=== PATIENT | female | born 1995 | race American Indian/Alaskan Native ===

== ENCOUNTER 2017-03-19 14:53 | Inpatient (IN) | payer MEDICAID ==
[2017-03-19] MEDS ORDERED: Ondansetron 4 MG/2 ML SDV IV PRN (16:29)
[2017-03-19] MEDS ORDERED: Carboprost Tromethamine 250 MCG/1 ML Amp IM PRN (16:29)
[2017-03-19] MEDS ORDERED: Misoprostol 400 MCG (4 X 100 MCG TAB) RECTAL PRN ×2 (16:29→20:17)
[2017-03-19] MEDS ORDERED: Sodium Chloride 0.9% 10 ML Syringe FLUSH PRN (16:29)
[2017-03-19] MEDS ORDERED: Lactated Ringers 500 ML IV ONE (16:29)
[2017-03-19] MEDS ORDERED: Methylergonovine 0.2 MG/1 ML Amp IM PRN (16:29)
[2017-03-19] MEDS ORDERED: Lidocaine 1% 30 ML SDV INJECT PRN (16:29)
[2017-03-19] MEDS ORDERED: Acetaminophen 325 MG Tab PO PRN (16:29)
[2017-03-19] MEDS: Lactated Ringers 1,000 ML IV SCH ×2 (16:50→20:44)
[2017-03-19] MEDS ORDERED: Simethicone 80 MG Tab.Chew PO PRN (20:17)
[2017-03-19] MEDS ORDERED: Oxytocin 10 Units/1 ML SDV IM PRN (20:17)
[2017-03-19] MEDS ORDERED: Benzocaine/Menthol 20%-0.5% Spray 56 GM Canister TOP PRN (20:17)
[2017-03-19] MEDS ORDERED: Oxytocin/Normal Saline 30 UNIT/500 ML BAG IV SCH (20:30)
[2017-03-19] MEDS ORDERED: Measles, Mumps & Rubella Vaccine 0.5 ML SDV SUBCUT ONE (21:00)
[2017-03-19] MEDS: Ibuprofen 800 MG Tab PO PRN (23:22)
[2017-03-19] MEDS: Docusate Sodium 100 MG Cap PO PRN (23:22)
--- NOTE | 2017-03-20 00:41 | HP ---
HISTORY OF PRESENT ILLNESS: The patient is a 21-year-old, G2, P1, at 39 weeks and 4 days. She presents today with contractions. No loss of fluid. No vaginal bleeding. Good movement. Thus far, this has been an uncomplicated . OB HISTORY: The patient has had 1 vaginal delivery, 7 pounds 5 ounces. 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 No STDs. PAST MEDICAL HISTORY: Negative. PAST SURGICAL HISTORY: Negative. ALLERGIES: The patient has no known drug allergies. LABORATORY DATA: The patient's blood type O positive. Antibody negative. She is rubella nonimmune. Syphilis negative. Hepatitis B negative. HIV negative. Group B strep negative. One hour glucose was 110. Hepatitis C negative. Gonorrhea and chlamydia negative. The patient did have an ultrasound on 11/30/2016, which did revise her edc. The ultrasound was otherwise normal. PHYSICAL EXAMINATION: General: The patient is afebrile. Vital Signs: Blood pressure 134/59. External monitoring is reactive, reassuring with contractions. The patient was admitted with a cervix of 4 cm and within an hour she progressed to 5, 80 and 0. CBC showed a white count of 10.7, hemoglobin 9.3, platelets 47. ASSESSMENT AND PLAN: IUP at term, in active labor. We will likely augment this labor with AROM and expect a vaginal delivery. [facility] /[id number] MTDD
[2017-03-20] MEDS: Ferrous Sulfate 325 MG Tab PO SCH ×3 (05:01→17:48)
[2017-03-20] MEDS ORDERED: Prenatal Multivitamin with Calcium/Folic Acid/Iron Tab PO SCH (09:00)
[2017-03-20] MEDS: Ibuprofen 800 MG Tab PO PRN (09:18)
[2017-03-20] MEDS: Docusate Sodium 100 MG Cap PO PRN (09:19)
--- NOTE | 2017-03-20 16:18 | PCM.DEL ---
<Elijah Estrella - Last Filed: 03/20/17 23:43> L & D Note - General Info Date of Service: 03/19/17 Mother's Due Date: 03/22/17 - Delivery Note Labor: Spontaneous Delivery Outcome: Livebirth Infant Delivery Method: Spontaneous Vaginal Delivery-Single Infant Delivery Mode: Spontaneous Presentation: Left Occiput Anterior (REJI) Nuchal Cord: None Anesthesia Type: None Anesthetic: Lidocaine (Xylocaine) 0.5% Plain Local Anesthetic Volume: 5cc Amniotic Fluid Description: Clear Episiotomy Type: None Laceration: 1st Degree Suture type: Vicryl Suture size: 3-0 Placenta: Intact, Spontaneous Cord: 3 Vessels Estimated Blood Loss: 200 [place]: Bulb Syringe Provider: Malorie Burrows Score 1 min: 10 Score 5 min: 10 Second Stage Interventions: Reports: Second Nurse Assessed Progress of Descent, Second Nurse Reviewed Contraction Pattern, Second Nurse Reviewed Heart Tones, Encouragement Given, Laboring Down Delivery Comments (Free Text/Narrative):: With the patient in the lithotomy position, she delivered a viable male in the OA position over intact perineum. After the infant's head delivered shoulders followed thereafter, and then baby was briefly dried, crying well, and delivered up to mother's abdomen. Minimal bulb suction was necessary. Delayed cord clamping was performed,and then the umbilical cord was cut, and three-vessel verified, cord blood sample obtained and placenta delivered by gentle cord traction and uterine massage, inspected and intact. Labia, vagina, and cervix were inspected and a first degree tear was was noticed near the posterior hymen proceeding posterior 1.5 cm down the perineum. Lidocaine was administered for pain control and a simple running suture with 3.0 vicryl was used to approximate the laceration. No other complications noted. - General Info Date of Service: 03/19/17 Admission Dx/Problem (Free Text): PREPROCEDURE DIAGNOSES: 1. Garvida 2 Para 1001 2. A 39wk4d gestation by U/S on 11/30/16 3. Blood type O pos, rubella non-immune, and GBS neg. 4. Bacterial vaginosis in 1st trimester and UTI in 2nd trimester 5. Anemia of POSTPROCEDURE DIAGNOSES 1. Garvida 2 Para 2001 2. A 39wk4d gestation by U/S on 11/30/16 3. Blood type O pos, rubella non-immune, and GBS neg. 4. Bacterial vaginosis in 1st trimester and UTI in 2nd trimester 5. Anemia of 6. Status post uncomplicated vaginal delivery of viable female BRIEF HISTORY: A 21 yo female presented to the Labor and Delivery unit with increased force and frequency with regular contractions. She was 5cm on admission. The patient progressed from 5 cm to 10 cm around 7:45pm. The patient started to feel a strong urge to push. The team prepared and the patient pushed for 10 mins prior to delivery. Functional Status: Reports: Pain Controlled - Review of Systems General: Denies: Fever, Weakness, Fatigue HEENT: Denies: Headaches Pulmonary: Denies: Shortness of Breath, Pleuritic Chest Pain, Cough Cardiovascular: Denies: Chest Pain, Palpitations Gastrointestinal: Denies: Nausea, Vomiting Musculoskeletal: Reports: Back Pain. Denies: Leg Pain Skin: Denies: Cyanosis, Jaundice, Pallor Neurological: Denies: Confusion, Dizziness, Headache Psychiatric: Denies: Confusion, Anxiety - Patient Data Vitals - Most Recent: Last Vital Signs Temp 98.2 F 03/19/17 20:00 Pulse 81 03/19/17 22:00 Resp 16 03/19/17 22:00 BP 109/56 L 03/19/17 22:00 Pulse Ox 100 03/19/17 16:49 Weight - Most Recent: 111.13 kg I&O - Last 24 Hours: Intake & Output 03/20/17 03/20/17 03/20/17 06:59 14:59 22:59 Intake Total 125 Balance 125 Lab Results Last 24 Hours: Laboratory Results - last 24 hr 03/19/17 03/20/17 Range/Units 16:45 06:00 WBC 10.7 H 11.2 H (5.0-10.0) 10^3/uL RBC 4.71 4.04 L (4.2-5.4) 10^6/uL Hgb 9.3 L 8.0 L (12.0-16.0) g/dL Hct 31.8 L 27.4 L (37.0-47.0) % MCV 67.5 L 67.8 L (80-100) fL MCH 19.7 L 19.8 L (27.0-34.0) pg MCHC 29.2 L 29.2 L (33.0-35.0) g/dL Plt Count 487 H 425 (150-450) 10^3/uL Med Orders - Current: Current Medications Acetaminophen (Tylenol) 650 mg PO Q4H PRN PRN Reason: Pain (Mild 1-3) and fever Benzocaine/Menthol (Dermoplast Pain Relief [place]) 0 gm TOP Q4H PRN PRN Reason: Perineal comfort measures Docusate Sodium (Colace) 100 mg PO BID PRN PRN Reason: Constipation Last Admin: 03/20/17 09:19 Dose: 100 mg Ferrous Sulfate (Ferrous Sulfate) 325 mg PO BIDMEALS HERIBERTO Last Admin: 03/20/17 09:19 Dose: 325 mg Oxytocin/Sodium Chloride (Pitocin In Ns 30 Unit/500 Ml) 30 unit in 500 mls @ 500 mls/hr IV TITRATE HERIBERTO; 500 MUNITS/MIN PRN Reason: Protocol Last Titration: 03/19/17 23:00 Dose: 0 mls/hr Ibuprofen (Motrin) 800 mg PO Q8H PRN PRN Reason: Mild Pain or Fever Last Admin: 03/20/17 09:18 Dose: 800 mg Lidocaine HCl (Xylocaine-Mpf 1%) 10 ml INJECT ASDIRECTED PRN PRN Reason: Perineal Repair Last Admin: 03/19/17 20:10 Dose: 10 ml Misoprostol (Cytotec) 800 mcg RECTAL ONETIME PRN PRN Reason: Hemorrhage Oxytocin (Pitocin) 10 unit IM ONETIME PRN PRN Reason: Bleeding Prenat Multivit/[place]/Iron/Folic Ac ( Plus Iron) 1 each PO DAILY HERIBERTO Last Admin: 03/20/17 09:19 Dose: 1 each Simethicone (Simethicone) 80 mg PO Q4H PRN PRN Reason: Gas Sodium Chloride (Saline Flush) 10 ml FLUSH ASDIRECTED PRN PRN Reason: Keep Vein Open Discontinued Medications Carboprost Tromethamine (Hemabate Ds) 250 mcg IM ASDIRECTED PRN PRN Reason: HEMORRHAGE Lactated Ringer's (Ringers, Lactated) 500 mls @ 999 mls/hr IV .BOLUS ONE Stop: 03/19/17 16:59 Last Admin: 03/20/17 05:01 Dose: Not Given Lactated Ringer's (Ringers, Lactated) 1,000 mls @ 125 mls/hr IV ASDIRECTED HERIBERTO Last Admin: 03/19/17 20:44 Dose: 125 mls/hr Measles/Mumps/Rubella Vaccine Live (M-M-R Ii Vaccine) 0.5 ml SUBCUT .ONCE ONE Stop: 03/19/17 21:01 Last Admin: 03/20/17 10:08 Dose: 0.5 ml Methylergonovine Maleate (Methergine) 0.2 mg IM ASDIRECTED PRN PRN Reason: Hemorrhage Misoprostol (Cytotec) 800 mcg RECTAL ASDIRECTED PRN PRN Reason: Hemorrhage Ondansetron HCl (Zofran) 4 mg IV Q4H PRN PRN Reason: Nausea/Vomiting - Exam General: Alert, Oriented HEENT: Pupils Reactive, Mucous Membr. Moist/[place] Neck: Trachea Midline Lungs: Normal Respiratory Effort (Female) Exam: Normal External Exam, Heart Tones Back Exam: Full Range of Motion Extremities: Normal Range of Motion, No Pedal Edema Skin: Warm, Intact Neurological: No New Focal Deficit Psy/Mental Status: Alert, Normal Affect, Normal Mood - Problem List & Annotations (1) Abdominal pain SNOMED Code(s): 23110775 Code(s): R10.9 - UNSPECIFIED ABDOMINAL PAIN Status: Acute QualifierTitle: Abdominal location: generalized Qualified Code(s): R10.84 - Generalized abdominal pain (2) Delivery normal SNOMED Code(s): 84430401 Code(s): O80 - ENCOUNTER FOR FULL-TERM UNCOMPLICATED DELIVERY; Z37.9 - OUTCOME OF DELIVERY, UNSPECIFIED Status: Acute (3) Normal labor SNOMED Code(s): 30458898 Code(s): O80 - ENCOUNTER FOR FULL-TERM UNCOMPLICATED DELIVERY; Z37.9 - OUTCOME OF DELIVERY, UNSPECIFIED Status: Acute Annotation/Comment:: 4am ctx started. 2.5cm at 12noon, now 7-8cm at admission. (4) Rubella non-immune SNOMED Code(s): 899158462 Code(s): Z78.9 - OTHER SPECIFIED HEALTH STATUS Status: Acute - Problem List Review Problem List Initiated/Reviewed/Updated: Yes - My Orders Last 24 Hours: My Active Orders 03/19/17 20:30 Oxytocin/Normal Saline [Pitocin in NS 30 UNIT/500 ML] 30 unit in 500 ml IV TITRATE - Assessment Assessment:: Mom progressed to of a viable male infant with apgars 10 and 10. weight was 3220 g, 7#5oz. - Plan Plan:: Mother and baby to stay in room at this time and start breast feeding when appropriate. <Malorie De Los Santos - Last Filed: 03/21/17 00:07> - Patient Data Vitals - Most Recent: Last Vital Signs Temp 98.2 F 03/20/17 21:00 Pulse 76 03/20/17 21:00 Resp 18 03/20/17 21:00 BP 105/56 L 03/20/17 21:00 Pulse Ox 100 03/20/17 21:00 I&O - Last 24 Hours: Intake & Output 03/20/17 03/20/17 03/21/17 14:59 22:59 06:59 Intake Total 125 Balance 125 Lab Results Last 24 Hours: Laboratory Results - last 24 hr 03/20/17 Range/Units 06:00 WBC 11.2 H (5.0-10.0) 10^3/uL RBC 4.04 L (4.2-5.4) 10^6/uL Hgb 8.0 L (12.0-16.0) g/dL Hct 27.4 L (37.0-47.0) % MCV 67.8 L (80-100) fL MCH 19.8 L (27.0-34.0) pg MCHC 29.2 L (33.0-35.0) g/dL Plt Count 425 (150-450) 10^3/uL Med Orders - Current: Current Medications Discontinued Medications Acetaminophen (Tylenol) 650 mg PO Q4H PRN PRN Reason: Pain (Mild 1-3) and fever Benzocaine/Menthol (Dermoplast Pain Relief [place]) 0 gm TOP Q4H PRN PRN Reason: Perineal comfort measures Carboprost Tromethamine (Hemabate Ds) 250 mcg IM ASDIRECTED PRN PRN Reason: HEMORRHAGE Docusate Sodium (Colace) 100 mg PO BID PRN PRN Reason: Constipation Last Admin: 03/20/17 09:19 Dose: 100 mg Ferrous Sulfate (Ferrous Sulfate) 325 mg PO BIDMEALS HERIBERTO Last Admin: 03/20/17 17:48 Dose: 325 mg Lactated Ringer's (Ringers, Lactated) 500 mls @ 999 mls/hr IV .BOLUS ONE Stop: 03/19/17 16:59 Last Admin: 03/20/17 05:01 Dose: Not Given Lactated Ringer's (Ringers, Lactated) 1,000 mls @ 125 mls/hr IV ASDIRECTED HERIBERTO Last Admin: 03/19/17 20:44 Dose: 125 mls/hr Oxytocin/Sodium Chloride (Pitocin In Ns 30 Unit/500 Ml) 30 unit in 500 mls @ 500 mls/hr IV TITRATE HERIBERTO; 500 MUNITS/MIN PRN Reason: Protocol Last Titration: 03/19/17 23:00 Dose: 0 mls/hr Ibuprofen (Motrin) 800 mg PO Q8H PRN PRN Reason: Mild Pain or Fever Last Admin: 03/20/17 09:18 Dose: 800 mg Lidocaine HCl (Xylocaine-Mpf 1%) 10 ml INJECT ASDIRECTED PRN PRN Reason: Perineal Repair Last Admin: 03/19/17 20:10 Dose: 10 ml Measles/Mumps/Rubella Vaccine Live (M-M-R Ii Vaccine) 0.5 ml SUBCUT .ONCE ONE Stop: 03/19/17 21:01 Last Admin: 03/20/17 10:08 Dose: 0.5 ml Methylergonovine Maleate (Methergine) 0.2 mg IM ASDIRECTED PRN PRN Reason: Hemorrhage Misoprostol (Cytotec) 800 mcg RECTAL ASDIRECTED PRN PRN Reason: Hemorrhage Misoprostol (Cytotec) 800 mcg RECTAL ONETIME PRN PRN Reason: Hemorrhage Ondansetron HCl (Zofran) 4 mg IV Q4H PRN PRN Reason: Nausea/Vomiting Oxytocin (Pitocin) 10 unit IM ONETIME PRN PRN Reason: Bleeding Prenat Multivit/[employer] [place]/Iron/Folic Ac ( Plus Iron) 1 each PO DAILY HERIBERTO Last Admin: 03/20/17 09:19 Dose: 1 each Simethicone (Simethicone) 80 mg PO Q4H PRN PRN Reason: Gas Sodium Chloride (Saline Flush) 10 ml FLUSH ASDIRECTED PRN PRN Reason: Keep Vein Open - My Orders Last 24 Hours: My Active Orders 03/20/17 09:12 Ready for Discharge [RC] PER UNIT ROUTINE - Plan Plan:: Patient seen and examined with Elijah Estrella MS4. Agree with his note as scribed on my behalf. -[facility] 03/21/17 2817.
[2017-03-20 21:01] VITALS: BP 105/56
--- NOTE | 2017-03-21 04:42 | DISCH ---
ADMITTING DIAGNOSES: 1. A 39 and 4/7 weeks' intrauterine based on 24-week ultrasound. 2. 2, para 1-0-0-1. 3. History of fast labors. 4. Blood type O positive, rubella non-immune, group B Streptococcus negative. 5. Varicella susceptible. 6. Bacterial vaginosis treated in the first trimester. 7. Urinary tract infection in the second trimester. 8. Anemia of . DISCHARGE DIAGNOSES: 1. A 39 and 4/7 weeks' intrauterine based on 24-week ultrasound. 2. 2, now para 2-0-0-2. 3. History of fast labors. 4. Blood type O positive, rubella non-immune, group B Streptococcus negative. 5. Varicella susceptible. 6. Bacterial vaginosis treated in the first trimester. 7. Urinary tract infection in the second trimester. 8. Anemia of . 9. Status post spontaneous vaginal delivery with first-degree laceration repair resulting with viable male infant, scores of 10 and 10; weight 3220 g 7 pounds 7 ounces. BRIEF HISTORY: A 21-year-old female, presented to the hospital with spontaneous onset of labor. After 6 hours of stage I and about 10 minutes of stage II, she delivered a viable male infant without complications. See delivery note for full details. PROCEDURES PERFORMED: Artificial rupture of membranes, spontaneous vaginal delivery, and first-degree laceration repair. HOSPITAL COURSE: Good. The patient has been ambulating and tolerating regular diet since time of delivery, passing flatus, and voiding without difficulties. No symptoms of severe anemia. No chest pain or shortness of breath. No symptoms of preeclampsia. PERTINENT LABORATORY DATA: Admission hemoglobin 9.3, platelets 487. Discharge hemoglobin of 8, platelets of 425. DISCHARGE CONDITION: Good. PHYSICAL EXAMINATION: Vital Signs: Temperature is 98.2, pulse is 76, blood pressure 105/56, respiratory rate of 18, O2 saturations 100% on room air. Heart: Regular without obvious murmur. Lungs: Clear to auscultation bilaterally. Abdomen: Soft, nontender. Fundus is firm and below the umbilicus. Extremities: No edema, erythema, or tenderness noted. LABORATORY DATA: As above. DISPOSITION: Home with family. DISCHARGE MEDICATIONS: 1. Ibuprofen 600 mg every 6 hours as needed for pain. 2. Tylenol 650 mg every 6 hours as needed for pain. 3. Iron 325 mg twice daily. 4. Colace 100 mg twice daily as needed for constipation. FOLLOWUP: She will make a 6-week care appointment. DISCHARGE INSTRUCTIONS: Routine post-vaginal delivery instructions were provided and her questions were answered. She will return to the hospital or clinic if any problems arise such as fever, abnormal drainage, excessive bleeding, fever, chills, or other concerns. [facility] /[id number]
== END 2017-03-20 20:55 | disposition home or self-care (01) | DRG 775 ==
LOC: DL.OBCHECK 14:53 → UNDOADMOB 16:13 → DL.OB 16:13 → INTOOBSV 19:54 → OBSVTOIN 19:54 → DL.OB 19:54 → DL.MS 03-20 08:37 → DL.OB 03-20 20:45 → UNDODISIN 03-20 20:55
PROVIDERS: ADMIT Obstetrics & Gynecology; ATTEND Family Medicine
PROC: 10E0XZZ Delivery of Products of Conception, External Approach (ICD-10-PCS; principal; 2017-03-19)
PROC: 4A1HXFZ Monitoring of Products of Conception, Cardiac Rhythm, External Approach (ICD-10-PCS; 2017-03-19)
PROC: 10907ZC Drainage of Amniotic Fluid, Therapeutic from Products of Conception, Via Natural or Artificial Opening (ICD-10-PCS; 2017-03-19)
PROC: 0HQ9XZZ Repair Perineum Skin, External Approach (ICD-10-PCS; 2017-03-19)
PROC: 3E0234Z Introduction of Serum, Toxoid and Vaccine into Muscle, Percutaneous Approach (ICD-10-PCS; 2017-03-19)
DX: O70.0 First degree perineal laceration during delivery (principal); Z3A.39 39 weeks gestation of pregnancy; Z37.0 Single live birth; Z78.9 Other specified health status; Z23 Encounter for immunization
CPT/HCPCS: 36415; 85027; 90707; A9270-GY; J2590; J7120

== ENCOUNTER 2018-08-16 08:40 | Day surgery (SDC) | payer MEDICAID, OTHER ==
[2018-08-16] MEDS ORDERED: Glycopyrrolate 0.2 MG/ML 2 ML SDV IV ONE (08:41)
[2018-08-16] MEDS ORDERED: Rocuronium 50 MG/5 ML Vial IV ONE (08:41)
[2018-08-16] MEDS ORDERED: Dexamethasone 4 MG/ML SDV IV ONE (08:41)
[2018-08-16] MEDS ORDERED: Ondansetron 4 MG/2 ML SDV IV ONE (08:41)
[2018-08-16] MEDS ORDERED: Lidocaine 2% 20 ML MDV INJECT ONE (08:41)
[2018-08-16] MEDS ORDERED: Ketorolac 30 MG/ML SDV IVPUSH ONE (08:41)
[2018-08-16] MEDS ORDERED: Propofol 200 MG/20 ML SDV IV ONE (08:41)
[2018-08-16] MEDS ORDERED: fentaNYL 250 MCG/5 ML SDV IV ONE (08:41)
[2018-08-16] MEDS ORDERED: Midazolam 1 MG/ML 2 ML SDV IV ONE (08:41)
[2018-08-16] MEDS ORDERED: Neostigmine Methylsulfate 10 MG/10 ML MDV IV ONE (08:41)
[2018-08-16] MEDS ORDERED: Lactated Ringers 1,000 ML IV SCH (09:00)
[2018-08-16] MEDS ORDERED: Sodium Chloride 0.9% 10 ML Syringe IV PRN (09:10)
[2018-08-16] MEDS ORDERED: ceFAZolin 2 GM in Premix Bag 1 BAG IV ONE (09:34)
[2018-08-16] MEDS ORDERED: Lidocaine 1% with EPINEPHrine 1:100,000 20 ML MDV ONE (10:37)
--- NOTE | 2018-08-16 11:22 | OR ---
DATE: 08/16/2018 PREOPERATIVE DIAGNOSES: Chronic cholecystitis and cholelithiasis. POSTOPERATIVE DIAGNOSES: Chronic cholecystitis and cholelithiasis. PROCEDURE: Laparoscopic cholecystectomy. ANESTHESIA: General. ESTIMATED BLOOD LOSS: Minimal. SPECIMEN: Gallbladder and stone. OPERATIVE FINDINGS: 1. Normal-appearing gallbladder with a single gallstone. 2. Evidence of cholesterolosis. INDICATION FOR PROCEDURE: This 23-year-old female has epigastric and right upper quadrant abdominal pain. She has an ultrasound that shows a single stone. PROCEDURE IN DETAIL: After adequate preparation, trocars were placed in the abdomen under direct vision. The abdomen was insufflated. The gallbladder was elevated from the liver bed, and using cautery dissection, the cystic triangle structures were opened. The duct was triply clipped and divided as was then the artery triply clipped and divided. The gallbladder was taken off the liver bed using blunt and cautery dissection. There was no spillage of bile. Hemostasis was adequately controlled. The gallbladder was brought out through the epigastric trocar site which was then reclosed using an 0 Vicryl for the fascial layer, and the skin was all closed with 4-[address] [facility] /[id number]
[2018-08-16 16:03] VITALS: BP 110/66
== END 2018-08-16 13:40 | disposition home or self-care (01) ==
LOC: DL.SDS 08:40
PROVIDERS: ATTEND Surgery
DX: K80.10 Calculus of gallbladder with chronic cholecystitis without obstruction (principal)
CPT/HCPCS: 00790; 81025; J0690; J1100; J1885; J2250; J2405; J2704; J2710; J3010; J3490; J7120

== ENCOUNTER 2020-06-18 21:13 | Inpatient (IN) | payer MEDICAID, OTHER ==
[2020-06-18] MEDS ORDERED: Misoprostol 400 MCG (4 X 100 MCG TAB) RECTAL PRN (22:24)
[2020-06-18] MEDS ORDERED: Carboprost Tromethamine 250 MCG/1 ML Amp IM PRN (22:24)
[2020-06-18] MEDS ORDERED: Ondansetron 4 MG/2 ML SDV IVPUSH PRN (22:24)
[2020-06-18] MEDS ORDERED: Lidocaine 1% 30 ML SDV INJECT PRN (22:24)
[2020-06-18] MEDS ORDERED: Methylergonovine 0.2 MG/1 ML Amp IM PRN (22:24)
[2020-06-18] MEDS ORDERED: Sodium Chloride 0.9% 10 ML Syringe FLUSH PRN ×2 (22:24→23:54)
[2020-06-18] MEDS ORDERED: Lactated Ringers 1,000 ML IV ONE (22:24)
[2020-06-18] MEDS ORDERED: Tranexamic Acid 1,000 MG in Sodium Chloride 0.9% 100 ML IV PRN (22:24)
[2020-06-18] MEDS ORDERED: Oxytocin/Normal Saline 30 UNIT/500 ML BAG IV SCH (22:30)
[2020-06-18] MEDS ORDERED: Lactated Ringers 1,000 ML IV SCH (22:30)
[2020-06-18] MEDS ORDERED: Zolpidem 5 MG Tab PO PRN (23:54)
[2020-06-18] MEDS ORDERED: Measles, Mumps & Rubella Vaccine 0.5 ML SDV SUBCUT ONE (23:54)
[2020-06-18] MEDS ORDERED: Simethicone 80 MG Tab.Chew PO PRN (23:54)
[2020-06-18] MEDS ORDERED: Oxytocin 10 Units/1 ML SDV IM PRN (23:54)
[2020-06-18] MEDS ORDERED: Benzocaine/Menthol 20%-0.5% Spray 56 GM Canister TOP PRN (23:54)
--- NOTE | 2020-06-19 00:14 | OBOUT ---
DATE: 06/18/2020 TIME: 2129 to 2149 REASON FOR NST: 1. Intrauterine at 39-6/7 weeks by 21-5/7 week ultrasound. 2. Active labor. 3. History of fast deliveries. 4. Anemia of . Hemoglobin 9.0 upon admission. 5. Rubella nonimmune. 6. GBS negative. 7. G3, P2-0-0-2. NST INTERPRETATION: During this time period, heart tone baseline is approximately 130 and at least two 15 x 15 beats per minute accelerations making this strip reactive. It is also noted to be reassuring. Tocometer reveals potential of 7 contractions felt by the patient. ASSESSMENT: 1. Nonstress test, reactive and reassuring. 2. Tocometer reveals contractions. PLAN: Please see H and P for further details. At current time of dictation, waiting rapid COVID test. [facility] /[id number]
--- NOTE | 2020-06-19 00:41 | HP ---
PATIENT IDENTIFICATION: Mary Bailey is a 25-year-old G3, P2-0-0-2 intrauterine at 39-6/7 weeks by 21-5/7 week ultrasound, who presents with contractions. HISTORY OF PRESENT ILLNESS: The patient states contractions started at 3 p.m. on date of admission, increasing in frequency and intensity to the point that they are coming every 2 to 3 minutes felt in the lower abdomen, rated 8 to 9 out of 10 on the pain scale, becoming worse over time and more frequent. Nothing seems to make them better. She denies any spotting, bleeding, or leaking. To put this in context, she has history of fast deliveries and anemia of . She is rubella nonimmune and GBS negative. Records called for reviewed as well and supplemented by patient history. ALLERGIES: None. MEDICATIONS: 1. vitamins daily. 2. Iron sulfate 325 b.i.d. PAST MEDICAL/PAST SURGICAL HISTORY: Remarkable for cholecystectomy on 08/17/2018, history of UTIs in the past, H pylori infection that was treated in the past. FAMILY HISTORY: Diabetes in mother and maternal grandmother. Negative family history of defects, multiple births, anesthesia problems, clotting disorders, bleeding problems, cystic fibrosis, seizures, or Down syndrome. SOCIAL HISTORY: Lives in [place] with her 2 boys, nephew, niece, and her children's father, Lei Keith, who is also the father of baby. She is not working currently. She denies any alcohol, tobacco, or drug use. OB HISTORY: 1. 01/22/2014, 39-4/7 weeks, delivered male, spontaneous vaginal delivery, weighing 7 pounds 4.8 ounces. 2. 03/19/2017, 39-4/7 weeks, delivered term male, 7 pounds 1.6 ounces. ANTEPARTUM LABORATORIES: ABO blood type O positive. Negative antibody. Rubella nonimmune. RPR nonreactive. Negative hepatitis B surface antigen, hep C, HIV, GC, and chlamydia. Urine drug screen negative. One-hour GTT was 91 on 02/22/2020. Hemoglobin was 8.6 on 04/29/2020. Quad screen was negative as well. GBS was negative on 05/26/2020. REVIEW OF SYSTEMS: Otherwise reviewed and felt to be noncontributory other than the above. OBJECTIVE: Vital Signs: 122/75, heart rate 84, temperature 97.3. Appearance: Appears her stated age, acting appropriate. Nontoxic appearance. Breathing through contractions, but acting appropriately in between, and answering questions appropriately. HEENT: Head is atraumatic. EOMs intact. PERRLA. No scleral icterus. No obvious otorhinorrhea. Mucous membranes moist. Neck: No obvious tenderness. Lungs: Clear to auscultation bilaterally. No increased work of breathing. Heart: S1, S2. Regular rate and rhythm. Abdomen: Gravid. Rambo's indeterminate. Nontender, nondistended. Bowel sounds positive. No organomegaly, pulsatile masses, or obvious hernias. No rebound, rigidity, or guarding with monitors applied. : Normal external female genitalia. Normal position and presentation of urethra. Vaginal exam reveals her to be 5 cm 100% effaced, 0 station, vertex suspected with bulging bag of water. Extremities: No peripheral edema. Deep tendon reflexes 2 to 3 out of 4 bilaterally and symmetric in lower extremities. Psychiatric: Mood and affect congruent. Judgment and insight intact. Skin: Without cyanosis, clubbing, or jaundice. Tocometer reveals contractions every 2 minutes. heart tones in the 130s range and reactive and reassuring. LABORATORY DATA: White cell count 10.2, hemoglobin 9, platelets 482. Rapid COVID negative. ASSESSMENT: 1. Intrauterine at 39-6/7 weeks by 21-5/7 week ultrasound. 2. Active labor. 3. History of fast deliveries. 4. Anemia of with hemoglobin 9.0. 5. Rubella nonimmune. 6. Group B Streptococcus negative. 7. G3, P2-0-0-2. PLAN: Discussed with the patient. The patient defers wanting anything for pain at this point in time. She is not interested in intrathecal. I will continue to follow clinically and closely. Did discuss potential breaking her bag of water in the near future. She understands and agrees to above treatment plan. [facility] /[id number]
[2020-06-19] MEDS: Ibuprofen 800 MG Tab PO PRN ×2 (02:34→20:06)
--- NOTE | 2020-06-19 07:55 | DEL ---
DATE: 06/18/2020 PREOPERATIVE DIAGNOSES: 1. Intrauterine at 39-6/7 weeks by 21-5/7 week ultrasound. 2. Active labor upon admission. 3. History of fast deliveries. 4. Anemia of with hemoglobin 9.0 upon admission. 5. Rubella nonimmune. 6. Group B Streptococcus negative. 7. G3, P2-0-0-2. POSTOPERATIVE DIAGNOSES: 1. Intrauterine at 39-6/7 weeks by 21-5/7 week ultrasound, delivered. 2. Active labor upon admission. 3. History of fast deliveries. 4. Anemia of with hemoglobin 9.0 upon admission. 5. Rubella nonimmune. 6. Group B Streptococcus negative. 7. G3, P2-0-0-2. 8. Nuchal cord x1, reduced bluntly at delivery. PROCEDURE PERFORMED: Nonstress test with subsequent artificial rupture of membranes nearing the second stage of labor and spontaneous vaginal delivery. SIZING MACHINE TENDER: None. ANESTHESIA/ANALGESIA: None. ESTIMATED BLOOD LOSS: 300 mL. FINDINGS: Female, scores 8 and 9. Weight pending. Nuchal cord x1, reduced bluntly at delivery. SUMMARY OF EVENTS: The patient is a 25-year-old G3, P2-0-0-2 intrauterine at 39-6/7 weeks by 21-5/7 week ultrasound, admitted in active labor with history of fast deliveries, anemia of , and GBS negative status. While waiting COVID test from the hospital, she did progress from 4 cm to 5 to 6 cm, and then rapidly progressed to about 8 cm after using the restroom. I was called to the room. Evaluated her at that time. Called for the nurses. They were in another delivery. After setting up in the room, she was found to be complete with a bulging bag of water. Artificial rupture of membranes was done after prep was finished by the nurses, and subsequently the patient pushed with contractions. vertex was delivered in OLEG presentation with nuchal cord x1 reduced bluntly at delivery with anterior posterior shoulder as well as rest of the delivering without difficulty thereafter. Mouth and nares were suctioned. Cord was doubly clamped, cut, and was brought to team. Then, approximately 10 mL of cord blood was obtained for labs. Placenta then delivered with gentle cord traction and fundal massage within 5 minutes. Perineum, vagina, and perirectal areas were examined and noted to have a small first-degree perineal abrasion, nonbleeding, nonrepaired after discussion with the patient. She did have to have some aggressive fundal massage and Pitocin increased to 999 for a while due to some mild atony, which resolved very quickly with interventions. Bleeding was very minimal after these interventions. Mother and infant are currently stable at time of dictation. [facility] /[id number] FAVIOL[place]
[2020-06-19] MEDS: Docusate Sodium 100 MG Cap PO PRN ×2 (09:37→20:06)
[2020-06-19] MEDS: Ferrous Sulfate 325 MG Tab PO SCH (09:37)
[2020-06-19] MEDS: Prenatal Multivitamin with Calcium/Folic Acid/Iron Tab PO SCH (09:37)
[2020-06-19] MEDS: Acetaminophen 325 MG Tab PO PRN ×2 (09:38→20:06)
--- NOTE | 2020-06-19 09:57 | PN ---
DATE: 06/19/2020 day #1. SUBJECTIVE: The patient is tolerating p.o., is ambulating, urinating, passing flatus. Notes her bleeding has decreased and is stable. OBJECTIVE: Vital Signs: Heart rate 68, blood pressure 110/67. Lungs: Clear to auscultation bilaterally. Heart: S1 and S2. Regular rate and rhythm. Abdomen: Firm uterus, -1 below umbilicus. Extremities: No peripheral edema. No calf pain. LABORATORY DATA: White cell count 14; hemoglobin 8.4, compared to predelivery hemoglobin 9; platelets 437. ASSESSMENT AND PLAN: day #1 status post spontaneous vaginal delivery complicated by anemia of . Hemoglobin dropped down to 8.4. The patient is currently asymptomatic. She denies any shortness of breath, chest pain, or lightheadedness. We will continue to follow clinically and closely and plan on discharge tomorrow. The patient understands and agrees to the above treatment plan. [facility] /[id number]
[2020-06-20] MEDS: Ferrous Sulfate 325 MG Tab PO SCH (09:36)
[2020-06-20] MEDS: Prenatal Multivitamin with Calcium/Folic Acid/Iron Tab PO SCH (09:36)
[2020-06-20] MEDS: Ibuprofen 800 MG Tab PO PRN (09:36)
[2020-06-20] MEDS: Docusate Sodium 100 MG Cap PO PRN (09:36)
--- NOTE | 2020-06-20 10:05 | DISCH ---
ADMIT DIAGNOSES: 1. Intrauterine at 39-6/7 weeks by 21-5/7 week ultrasound. 2. Active labor. 3. History of fast deliveries. 4. Anemia of . Hemoglobin 9.0. 5. Rubella nonimmune. 6. Group B Streptococcus negative. 7. G3, P2-0-0-2. POSTOPERATIVE DIAGNOSES: 1. Intrauterine at 39-6/7 weeks by 21-5/7 week ultrasound, delivered. 2. Active labor. 3. History of fast deliveries. 4. Anemia of . Hemoglobin 9.0. 5. Rubella nonimmune. 6. Group B Streptococcus negative. 7. G3, P2-0-0-2. 8. Nuchal cord x1, reduced bluntly at delivery. 9. Anemia of acute blood loss. Hemoglobin dropping down to 7.9 without symptoms. Defers blood transfusions. PROCEDURES PERFORMED: Nonstress test, artificial rupture of membranes, spontaneous vaginal delivery on 06/18/[address] Cha. HISTORY OF PRESENT ILLNESS: The patient was admitted on the above date with above diagnoses in active labor. Rapid COVID test was negative. Anemia of was noted with a hemoglobin of 9. The patient deferred going on anything for pain. She rapidly progressed into more active labor, was found to be nearing the 2nd stage of labor. I was called to the room, and subsequently with few contractions and pushing, spontaneous vaginal delivery occurred yielding a female, scores 8 and 9, weighing 3495 g (7 pounds 11 ounces). Please see delivery note for further details. day #1, please see progress note. day #2, on date of discharge, the patient was tolerating p.o., was ambulating, urinating, passing flatus, requesting discharge. PHYSICAL EXAMINATION: Vital Signs: Last set of vitals updated and listed on chart. Temperature 96.8, heart rate 79, blood pressure 113/66, respiratory rate 18. Lungs: Clear to auscultation bilaterally. Heart: S1, S2. Regular rate and rhythm. Abdomen: Firm uterus, +1 below umbilicus. Extremities: No peripheral edema. No calf pain. DISCHARGE LABS: White cell count 9.8, hemoglobin 7.9, platelets 423. CONDITION ON DISCHARGE COMPARED TO CONDITION ON ADMISSION: Improved. DISCHARGE INSTRUCTIONS: 1. Diet: As tolerated. 2. Activity: No lifting more than 20 pounds. No sit-ups or straining and pelvic rest for the next 6 weeks with immediate return to fertility discussed with the patient. Reasons to return or go to emergency room discussed with the patient in detail including, but not limited to, temperature greater than 100.4, foul-smelling discharge, red, hot breasts, or increased vaginal bleeding. DISCHARGE MEDICATIONS: [id number] Tylenol and ibuprofen for pain, iron sulfate 325 b.i.d. x6 weeks, and vitamins x6 weeks, and she has these medications. FOLLOWUP: Six weeks . Followup for her baby will be on 06/23/2020. She wishes to follow up in [facility]. An appointment will be made for her baby at the clinic in [facility]. [facility] /[id number]
[2020-06-20 11:51] VITALS: BP 115/67; PULSE 77
== END 2020-06-20 09:45 | disposition home or self-care (01) | DRG 806 ==
LOC: DL.OBCHECK 21:13 → DL.OB 22:30 → OBSVTOIN 23:45
PROVIDERS: ADMIT Family Medicine; ATTEND Family Medicine
PROC: 10E0XZZ Delivery of Products of Conception, External Approach (ICD-10-PCS; principal; 2020-06-18)
PROC: 10907ZC Drainage of Amniotic Fluid, Therapeutic from Products of Conception, Via Natural or Artificial Opening (ICD-10-PCS; 2020-06-18)
DX: O99.02 Anemia complicating childbirth (principal); D62 Acute posthemorrhagic anemia; Z37.0 Single live birth; Z3A.39 39 weeks gestation of pregnancy; Z20.828 Contact with and (suspected) exposure to other viral communicable diseases; Z90.49 Acquired absence of other specified parts of digestive tract; O70.0 First degree perineal laceration during delivery; O69.81X0 Labor and delivery complicated by cord around neck, without compression, not applicable or unspecified
CPT/HCPCS: 36415; 59025; 59409; 85027; 90707; A9270-GY; G0010; J2590; J7120; U0002

== ENCOUNTER 2022-06-01 16:51 | Inpatient (IN) | payer MEDICAID ==
[2022-06-01] MEDS ORDERED: Lactated Ringers 1,000 ML IV SCH ×2 (18:15→20:15)
[2022-06-01 18:33] LABS: AMPHETAMINES,URINE NEGATIVE (NEGATIVE); BARBITURATES,URINE NEGATIVE (NEGATIVE); BENZODIAZEPINE,URINE NEGATIVE (NEGATIVE); MDMA (ECSTASY), URINE NEGATIVE (NEGATIVE); METHADONE,URINE NEGATIVE (NEGATIVE); METHAMPHETAMINES,URINE NEGATIVE (NEGATIVE); OPIATES,URINE NEGATIVE (NEGATIVE); OXYCODONE,URINE NEGATIVE (NEGATIVE); PHENCYCLIDINE,URINE NEGATIVE (NEGATIVE); TCA,URINE NEGATIVE (NEGATIVE)
[2022-06-01] MEDS ORDERED: Methylergonovine 0.2 MG/1 ML Amp IM PRN (20:03)
[2022-06-01] MEDS ORDERED: Misoprostol 400 MCG (4 X 100 MCG TAB) RECTAL PRN (20:03)
[2022-06-01] MEDS ORDERED: Acetaminophen 325 MG Tab PO PRN ×2 (20:03→20:59)
[2022-06-01] MEDS ORDERED: Carboprost Tromethamine 250 MCG/1 ML Amp IM PRN (20:03)
[2022-06-01] MEDS ORDERED: Penicillin G Potassium 5 MILLUNITS in Sodium Chloride 0.9% 100 ML IV ONE (20:03)
[2022-06-01] MEDS ORDERED: Lactated Ringers 1,000 ML IV ONE (20:03)
[2022-06-01] MEDS ORDERED: Ondansetron 4 MG/2 ML SDV IVPUSH PRN (20:03)
[2022-06-01] MEDS ORDERED: Lidocaine 1% 30 ML SDV INJECT PRN (20:03)
[2022-06-01] MEDS ORDERED: Sodium Chloride 0.9% 10 ML Syringe FLUSH PRN (20:03)
[2022-06-01] MEDS ORDERED: Tranexamic Acid 1,000 MG in Sodium Chloride 0.9% 100 ML IV PRN (20:03)
[2022-06-01] MEDS ORDERED: Penicillin G Potassium 5,000,000 Unit Vial ONE ×2 (20:09→20:12)
[2022-06-01] MEDS ORDERED: Penicillin G Potassium 3 MILLUNITS in Sodium Chloride 0.9% 100 ML IV SCH (20:15)
[2022-06-01] MEDS: Oxytocin/Normal Saline 30 UNIT/500 ML BAG IV SCH ×2 (20:46→22:38)
[2022-06-01] MEDS ORDERED: Simethicone 80 MG Tab.Chew PO PRN (20:59)
[2022-06-01] MEDS ORDERED: Oxytocin 10 Units/1 ML SDV IM PRN (20:59)
[2022-06-01] MEDS ORDERED: Benzocaine/Menthol 20%-0.5% Spray 78 GM Cannister TOP PRN (20:59)
[2022-06-01] MEDS ORDERED: Ibuprofen 800 MG Tab PO PRN (20:59)
[2022-06-01] MEDS ORDERED: ceFAZolin 1 GM in Sodium Chloride 0.9% 50 ML IV ONE (21:04)
[2022-06-01] MEDS ORDERED: Fluconazole 100 MG Tab PO ONE (21:05)
[2022-06-01] MEDS ORDERED: Calcium Carbonate 500 MG Tab.Chew PO PRN (22:00)
[2022-06-01] MEDS: Docusate Sodium 100 MG Cap PO PRN (22:21)
[2022-06-02] MEDS: metroNIDAZOLE 250 MG Tab PO SCH ×3 (00:13→21:41)
[2022-06-02] MEDS ORDERED: metroNIDAZOLE 250 MG Tab PO SCH (09:00)
[2022-06-02] MEDS: Docusate Sodium 100 MG Cap PO PRN ×2 (09:07→21:41)
[2022-06-02] MEDS: Prenatal Multivitamin with Calcium/Folic Acid/Iron Tab PO SCH (09:07)
[2022-06-02] MEDS: Ferrous Sulfate 325 MG Tab PO SCH (17:43)
[2022-06-03 07:22] VITALS: BP 112/66; PULSE 81
[2022-06-03] MEDS: metroNIDAZOLE 250 MG Tab PO SCH (09:35)
[2022-06-03] MEDS: Prenatal Multivitamin with Calcium/Folic Acid/Iron Tab PO SCH (09:35)
[2022-06-03] MEDS: Ferrous Sulfate 325 MG Tab PO SCH (09:35)
== END 2022-06-03 12:56 | disposition home or self-care (01) | DRG 805 ==
LOC: DL.OBCHECK 16:51 → DL.OB 20:30 → OBSVTOIN 20:43 → DL.OB 20:43
PROVIDERS: ADMIT Family Medicine; ATTEND Family Medicine
PROC: 10E0XZZ Delivery of Products of Conception, External Approach (ICD-10-PCS; principal; 2022-06-01)
PROC: 10907ZC Drainage of Amniotic Fluid, Therapeutic from Products of Conception, Via Natural or Artificial Opening (ICD-10-PCS; principal; 2022-06-01)
PROC: 3E0R3BZ Introduction of Anesthetic Agent into Spinal Canal, Percutaneous Approach (ICD-10-PCS; principal; 2022-06-01)
DX: O98.82 Other maternal infectious and parasitic diseases complicating childbirth (principal); O75.3 Other infection during labor; Z37.0 Single live birth; N39.0 Urinary tract infection, site not specified; O99.02 Anemia complicating childbirth; Z3A.39 39 weeks gestation of pregnancy; O99.214 Obesity complicating childbirth; Z90.49 Acquired absence of other specified parts of digestive tract; B37.31 Acute candidiasis of vulva and vagina; Z20.822 Contact with and (suspected) exposure to COVID-19; Z28.39 Other underimmunization status; Z87.440 Personal history of urinary (tract) infections; B96.89 Other specified bacterial agents as the cause of diseases classified elsewhere
CPT/HCPCS: 36415; 59025; 59409; 80305-QW; 81001; 85025; 85027; 86592; 87077; 87081; 87186; 87210; A9270-GY; J0690; J2210; J2405; J2540; J2590; J7120; U0002

== ENCOUNTER 2024-10-28 00:22 | Inpatient (IN) | payer MEDICAID ==
[~2024-10-28 00:22] MED LIST: Acetaminophen 325 MG Tab PO PRN; Carboprost Tromethamine 250 MCG/1 ML Amp IM PRN; Methylergonovine 0.2 MG/1 ML Amp IM PRN; Ondansetron 4 MG/2 ML SDV IVPUSH PRN; Oxytocin/Normal Saline 30 UNIT/500 ML BAG ONE; Sodium Chloride 0.9% 10 ML Syringe FLUSH PRN; Tranexamic Acid 1,000 MG in Sodium Chloride 0.9% 100 ML IV PRN; Tranexamic Acid 1,000 MG/10 ML Vial ONE; ceFAZolin 2 GM Vial ONE
[2024-10-28 00:40] LABS: HEMATOCRIT 36.9 % (37.0-47.0); HEMOGLOBIN 11.5 g/dL (12.0-16.0); MEAN CORPUSCULAR HEMOGLOBIN 24.5 pg (27.0-34.0); MEAN CORPUSCULAR HGB CONC 31.2 g/dL (33.0-35.0); MEAN CORPUSCULAR VOLUME 78.5 fL (80-100); RED BLOOD CELL COUNT 4.7 10^6/uL (4.2-5.4); WHITE BLOOD CELL COUNT,WBC 11.1 10^3/uL (5.0-10.0)
[2024-10-28] MEDS: Lactated Ringers 1,000 ML IV SCH (03:51)
[2024-10-28] MEDS: Oxytocin/Lactated Ringers 30 UNIT/500 ML BAG IV SCH (04:00)
[2024-10-28] MEDS ORDERED: Sodium Chloride 0.9% 10 ML Syringe FLUSH PRN (04:13)
[2024-10-28] MEDS ORDERED: Misoprostol 100 MCG Tab RECTAL PRN (04:13)
[2024-10-28] MEDS ORDERED: Hydrocortisone 2.5% Crm 30 GM Tube TOP PRN (04:13)
[2024-10-28] MEDS ORDERED: Oxytocin 10 Units/1 ML SDV IM PRN (04:13)
[2024-10-28] MEDS ORDERED: Carboprost Tromethamine 250 MCG/1 ML Amp IM PRN (04:13)
[2024-10-28] MEDS ORDERED: Simethicone 80 MG Tab.Chew PO PRN (04:13)
[2024-10-28] MEDS ORDERED: Tranexamic Acid 1,000 MG in Sodium Chloride 0.9% 100 ML IV PRN (04:13)
[2024-10-28] MEDS ORDERED: Acetaminophen 325 MG Tab PO PRN (04:13)
[2024-10-28] MEDS ORDERED: Measles, Mumps & Rubella Vaccine 0.5 ML SDV SUBCUT ONE (04:23)
[2024-10-28] MEDS: Lactated Ringers 1,000 ML IV ONE (04:36)
[2024-10-28] MEDS: Lidocaine 1% 30 ML SDV INJECT ONE (04:36)
[2024-10-28] MEDS: Ibuprofen 800 MG Tab PO SCH (04:39)
[2024-10-28] MEDS: Benzocaine/Menthol 20%-0.5% Spray 78 GM Cannister TOP PRN (07:52)
[2024-10-28] MEDS: Witch Hazel Medicated Pads 100/Jar TOP PRN (07:53)
[2024-10-28] MEDS: Prenatal Multivitamin with Calcium/Folic Acid/Iron Tab PO SCH (08:54)
[2024-10-28] MEDS: Ferrous Sulfate 325 MG Tab PO SCH (08:54)
[2024-10-28] MEDS: Docusate Sodium 100 MG Cap PO PRN (08:54)
[2024-10-29] MEDS: Measles, Mumps & Rubella Vaccine 0.5 ML SDV SUBCUT ONE (09:16)
[2024-10-29 15:09] VITALS: BP 107/59; PULSE 68
== END 2024-10-29 10:05 | disposition home or self-care (01) | DRG 807 ==
LOC: DL.OBCHECK 00:22 → DL.OB 00:46 → OBSVTOIN 03:58
PROVIDERS: ADMIT Family Medicine; ATTEND Family Medicine
PROC: 10907ZC Drainage of Amniotic Fluid, Therapeutic from Products of Conception, Via Natural or Artificial Opening (ICD-10-PCS; principal; 2024-10-28)
PROC: 10E0XZZ Delivery of Products of Conception, External Approach (ICD-10-PCS; principal; 2024-10-28)
DX: O99.214 Obesity complicating childbirth (principal); Z37.0 Single live birth; O99.02 Anemia complicating childbirth; Z90.49 Acquired absence of other specified parts of digestive tract; O70.0 First degree perineal laceration during delivery; E61.1 Iron deficiency; Z3A.39 39 weeks gestation of pregnancy
CPT/HCPCS: 36415; 59409; 85027; 90471; 90707; A9270-GY; J2590; J7120